=== PATIENT | male | born 1990 | race Caucasian/White ===

== ENCOUNTER → 2016-12-31 | Outpatient (CLI) | payer BC | END | disposition home or self-care (01) | LOC: GMAJ 10:22 | PROVIDERS: ATTEND Family Medicine | DX: R03.0 Elevated blood-pressure reading, without diagnosis of hypertension (principal) ==

== ENCOUNTER → 2017-01-14 | Outpatient (CLI) | payer BC ==
--- NOTE | 2017-01-14 10:58 | US ---
EXAM DESCRIPTION: Renal Arteries CLINICAL HISTORY: 26 years, Male, ESSENTIAL (PRIMARY) HYPERTENSION COMPARISON: None. TECHNIQUE: Multiple duplex Doppler ultrasound images were obtained of the renal arteries and aorta. FINDINGS: The aorta demonstrates a peak systolic velocity of 134 cm/s. The right renal artery proximally is 98 midportion 137 and distally 79. The aortic to peak velocity ratio is 1. For the left the proximal renal artery is 93, mid is 119, and distal is 151 cm a second. Ratio 1.1. Waveforms appear unremarkable. IMPRESSION: No evidence renal artery stenosis. Electronically signed by: Eliezer Riley MD 01/14/2017 10:58 AM CDT
== END | disposition home or self-care (01) ==
LOC: US 01-08 10:14
PROVIDERS: ATTEND Family Medicine
DX: R03.0 Elevated blood-pressure reading, without diagnosis of hypertension (principal); I10 Essential (primary) hypertension

== ENCOUNTER → 2018-04-09 | Outpatient (CLI) | payer BC ==
--- NOTE | 2018-04-09 16:30 | US ---
EXAM DESCRIPTION: Venous,Lower Extremity LT CLINICAL HISTORY: M79.605 COMPARISON: None Available. TECHNIQUE: Left lower extremity venous duplex FINDINGS: Doppler evaluation of the left lower extremity deep veins was performed. Normal color flow is seen in the common femoral, superficial femoral, profunda femoral and greater saphenous veins. Normal flow is seen in the popliteal vein and veins below the knee in the calf. Normal venous compressibility and flow augmentation. IMPRESSION: Negative for evidence of deep venous thrombosis on left lower extremity venous Doppler sonogram. Electronically signed by: Cole Tate MD 04/09/2018 4:29 PM CDT
== END ==
LOC: US 15:22
PROVIDERS: ATTEND Physician Assistant
DX: M79.605 Pain in left leg (principal)

== ENCOUNTER 2019-01-04 21:29 | Emergency (ER) | payer BC ==
[2019-01-04 21:57] VITALS: TEMP 98.4
[2019-01-04] MEDS: PROMETHAZINE HCL INJ 25 MG/ML VIAL IM ONE (22:22)
[2019-01-04] MEDS: KETOROLAC TROMETHAMINE INJ 30 MG/ML VIAL IM ONE (22:22)
--- NOTE | 2019-01-04 22:37 | ED.PDOC ---
History of Present Illness - General Chief Complaint: Dental/Mouth Stated Complaint: dental absess pain Time Seen by Provider: 01/04/19 21:58 Source: patient Exam Limitations: no limitations - History of Present Illness Initial Comments: Patient presents with a toothache. It has been going on for several days. He was seen by a dentist this morning and told that he had a dental abscess. He was started on Augmentin and Tramadol. He says that the Tramadol is not working and that he cannot sleep because of the pain. He is scheduled to see the dentist for definitive treatment in just over a week. The pain is throbbing, located at the left maxillary 2nd molar, non-radiating and constant. Worse with movement, better with rest. He is unable to chew because of the pain. He reports vomiting several times tonight because of the pain and he is still nauseous. No other complaints. Timing/Duration: getting worse Severity: severe Improving Factors: rest Worsening Factors: other - chewing Associated Symptoms: nausea/vomiting Allergies/Adverse Reactions: Allergies NO KNOWN ALLERGY Allergy (Verified 01/04/19 21:57) Home Medications: Ambulatory Orders Acetaminophen W/ Codeine [Tylenol W/ CODEINE #3] 1 ea PO Q4HR PRN #20 01/04/19 Amoxicillin & Pot Clavulanate [Augmentin Tab] 500 mg PO BID 01/04/19 Azilsartan Medoxomil [Edarbi] 40 mg PO DAILY 01/04/19 Ketorolac Tromethamine [Toradol Tabs] 10 mg PO Q6HRS #14 tab 01/04/19 Promethazine Tab [Phenergan Tablet] 25 mg PO .Q4H #12 tab 01/04/19 Tramadol HCl 50 mg PO Q6HRS PRN 01/04/19 Review of Systems - Review of Systems Constitutional: States: no symptoms reported EENTM: States: see HPI Respiratory: States: no symptoms reported Cardiology: States: no symptoms reported Gastrointestinal/Abdominal: States: no symptoms reported Genitourinary: States: no symptoms reported Musculoskeletal: States: no symptoms reported Skin: States: no symptoms reported Neurological: States: no symptoms reported Endocrine: States: no symptoms reported Hematologic/Lymphatic: States: no symptoms reported Past Medical History (General) - Patient Medical History Hx Hypertension: Yes Hx Diabetes: No Hx MRSA: Yes - Unknown 2006 - Vaccination History Immunizations Up to Date: Yes - Triage Comment ED Triage Comment: Dental pain due to being diagnosed with "dental abcess" today Family Medical History - Family History Father Family History: Unknown Physical Exam - Physical Exam General Appearance: Alert Eye Exam: bilateral normal Ears, Nose, Throat: normal ENT inspection, other - right second maxillary molar TTP. No visible swelling nor exudate. Neck: non-tender, full range of motion, supple Respiratory: lungs clear, normal breath sounds Cardiovascular/Chest: regular rate, rhythm Gastrointestinal/Abdominal: normal bowel sounds, non tender, soft Neurologic: no motor/sensory deficits, alert, normal mood/affect, oriented x 3 Progress - Progress Progress: 01/04/19 23:16 Toradol 30 mg IM and Phenergan 25 mg IM resolved the sx. Patient was given RX for Toradol, Tylenol #3, and Phenergan. Care instructions given. E.R. warnings given. Questions were elicited and answered. Patient voiced understanding and agreement with the plan. Departure - Departure Clinical Impression: Dental abscess Disposition: Discharge to Home or Self Care Condition: Good Departure Forms: ED Discharge - Pt. Copy, Patient Portal Self Enrollment Instructions: DI for Mouth Pain Diet: resume usual diet Activity: increase activity as tolerated Referrals: Vega Orellana MD [Primary Care Provider] - 1-2 Weeks Prescriptions: Acetaminophen W/ Codeine [Tylenol W/ CODEINE #3] 1 ea PO Q4HR PRN #20 PRN Reason: Pain Ketorolac Tromethamine [Toradol Tabs] 10 mg PO Q6HRS #14 tab Promethazine Tab [Phenergan Tablet] 25 mg PO .Q4H #12 tab Home Medications: Ambulatory Orders Acetaminophen W/ Codeine [Tylenol W/ CODEINE #3] 1 ea PO Q4HR PRN #20 01/04/19 Amoxicillin & Pot Clavulanate [Augmentin Tab] 500 mg PO BID 01/04/19 Azilsartan Medoxomil [Edarbi] 40 mg PO DAILY 01/04/19 Ketorolac Tromethamine [Toradol Tabs] 10 mg PO Q6HRS #14 tab 01/04/19 Promethazine Tab [Phenergan Tablet] 25 mg PO .Q4H #12 tab 01/04/19 Tramadol HCl 50 mg PO Q6HRS PRN 01/04/19 Additional Instructions: Take your Augmentin as prescribed. Take nausea medications as prescribed but only when needed. You may take the Toradol (ketorolac) for up to 4 days as prescribed then you must discontinue it. You may start Tylenol #3 (acetaminophen with codeine) after four days but only if there is still significant pain. Do NOT take the Tylenol #3 (acetaminophen with codeine) within 6 hours of the Tramadol. Do not drive or operate heavy machinery within 6 hours of taking Phenergan (promethazine) or Tylenol #3 (acetaminophen with codeine). Do not drive or operate heavy machinery within six hours of taking Tramadol. See your dentist as scheduled.
[2019-01-04 22:54] VITALS: BP 124/77; O2SAT 92
== END 2019-01-04 23:36 | disposition home or self-care (01) ==
LOC: ER 21:29
DX: K04.7 Periapical abscess without sinus (principal); R11.2 Nausea with vomiting, unspecified; I10 Essential (primary) hypertension
CPT/HCPCS: J1885; J2550